=== PATIENT | male | born 1960 | race Caucasian/White ===

== ENCOUNTER 2018-03-09 01:10 | Emergency (ER) | payer OTHER ==
--- NOTE | 2018-03-09 01:14 | ER Report ---
History and Physical Time Seen By MD: 01:12 HPI/ROS CHIEF COMPLAINT: Left maxillary swelling and redness HISTORY OF PRESENT ILLNESS: 57-year-old male presents with left facial swelling. He recalls no traumatic injury. He does note that he has rosacea usually involves his forehead but not his lower face. Patient just finished Augmentin for a respiratory infection. He noted that his left face is swell up over the last 2 days. Quite warm. Patient notes mild pain. He notes no dental problems. There are several scratches an open wounds to the left cheek. REVIEW OF SYSTEMS: Respiratory: No cough, no dyspnea. Cardiovascular: No chest pain, no palpitations. Gastrointestinal: No vomiting, no abdominal pain. Musculoskeletal: No back pain. Allergies: Coded Allergies: No Known Drug Allergies (Unverified , 03/09/18) Home Meds Active Scripts Cephalexin Monohydrate (CEPHALEXIN) 500 Mg Cap, 500 MG PO TID for infection, #20 CAP TAKE 1 CAPSULE BY MOUTH EVERY SIX HOURS Prov:CLARITZA JOLLY DO 03/09/18 Sulfamethoxazole/Trimet 800-160 Mg Tab (BACTRIM DS TABLET) 1 Each Tablet, 1 TAB PO Q12H for infection, #14 Prov:CLARITZA JOLLY DO 03/09/18 Reported Medications Valsartan/Hydrochlorothiazide (DIOVAN HCT 160-12.5 MG TAB) 1 Each Tablet, 1 EACH PO QDAY 03/09/18 Rosuvastatin Calcium (CRESTOR) 5 Mg Tablet, PO QDAY 03/09/18 Reviewed Nurses Notes: Yes Old Medical Records Reviewed: Yes Constitutional Vital Sign - Last 24 Hours 03/09/18 01:15 Temp 98.8 Pulse 76 Resp 16 B/P (MAP) 173/112 Pulse Ox 94 O2 Delivery Room Air Physical Exam General Appearance: The patient is alert, has no immediate need for airway protection and no current signs of toxicity. Vital signs stable, afebrile, pulse ox normal HEENT: Pupils equal and round no injection. PERRLA, EOMI, TMs normal, TMJs nontender, palpation of the left face reveals significant soft tissue swelling to left maxillary area. There are several scabbed areas. There is no fluctuance. There is no tenderness on deep palpation. There is no lymphadenopa thy of the anterior cervicals chain Respiratory: Chest is non tender, lungs are clear to auscultation. Cardiac: regular rate and rhythm Gastrointestinal: Abdomen is soft and non tender, no masses, bowel sounds normal. Musculoskeletal: Neck: Neck is supple and non tender. Extremities have full range of motion and are non tender. Skin: No rashes or lesions. DIFFERENTIAL DIAGNOSIS: After history and physical exam differential diagnosis was considered for cellulitis, dental abscess, allergic reaction, Medical Decision Making ED Course/Re-evaluation ED Course Patient was minute to an examination room. H&P was done. The differential diagnoses was considered. Patient appears to have facial cellulitis. He'll be covered with Keflex and Bactrim. He is advised warm compresses to the affected area and ibuprofen for pain relief. Patient advised to follow-up with primary care if unimproved in 3-5 days. Decision to Disposition Date: Mar 09, 2018 Decision to Disposition Time: 01:25 Depart Departure Latest Vital Signs Vital Signs Date Time Temp Pulse Resp B/P (MAP) Pulse Ox O2 Delivery O2 Flow Rate FiO2 03/09/18 01:15 98.8 76 16 173/112 94 Room Air Impression: Primary Impression: Facial cellulitis Condition: Improved Disposition: HOME OR SELF-CARE Referrals: TATE HAYWOOD MD, FARRUKH MD New Scripts Cephalexin Monohydrate (CEPHALEXIN) 500 Mg Cap 500 MG PO TID for infection, #20 CAP TAKE 1 CAPSULE BY MOUTH EVERY SIX HOURS Prov: CLARITZA JOLLY DO 03/09/18 Sulfamethoxazole/Trimet 800-160 Mg Tab (BACTRIM DS TABLET) 1 Each Tablet 1 TAB PO Q12H for infection, #14 Prov: CLARITZA JOLLY DO 03/09/18 Patient Instructions: Cellulitis (ED) Additional Instructions: Apply warm compresses to your left face Follow-up with your primary care if unimproved in 3-5 days CLARITZA JOLLY DO Mar 09, 2018 01:14
[2018-03-09 01:15] VITALS: BP 173/112
[2018-03-09] MEDS ORDERED: ROSU5TAB8 PO (01:21)
[2018-03-09] MEDS ORDERED: VALS1TAB67 PO (01:21)
[2018-03-09] MEDS ORDERED: CEPH500C24 PO (01:28)
[2018-03-09] MEDS ORDERED: SULF-198 PO (01:28)
[2018-03-09] MEDS ORDERED: TRIMETH/SULFA DS 160-800MG TAB PO ONE (01:30)
[2018-03-09] MEDS ORDERED: CEPHALEXIN MONO 500 MG CAP PO ONE (01:30)
== END 2018-03-09 01:42 | disposition home or self-care (01) ==
LOC: ER 01:16
DX: L03.211 Cellulitis of face (principal)
CPT/HCPCS: 99283